=== PATIENT | male | born 1960 | race Caucasian/White ===

== ENCOUNTER 2017-06-30 09:50 | Emergency (ER) | payer MEDICARE ==
[~2017-06-30] VITALS: Ht 175.3 cm; Wt 83.9 kg
[~2017-06-30 09:50] MED LIST: PRILOSEC20 MG PO
[2017-06-30] MEDS ORDERED: COLESTIPOL HCL1 GM PO (10:00)
[2017-06-30] MEDS ORDERED: OSELTAMIVIR PHO75 MG PO (10:00)
--- NOTE | 2017-06-30 21:01 | EKG ---
[facility] [address] [facility] [place], [place] [address] Signed Normal sinus rhythm Normal ECG Confirmed by PORTIA SORIANO MD ([id number]) on 06/30/2017 9:01:48 PM Electronically Signed By: PORTIA SORIANO MD 06/30/172100 PATIENT NAME: ALEXANDRE DEVLIN Electrocardiogram DATE OF : 58 PHYSICIAN: PORTIA SORIANO MD REPORT #: [id number] REPORT IS CONFIDENTIAL AND NOT TO BE RELEASED WITHOUT AUTHORIZATION
== END 2017-06-30 11:26 | disposition home or self-care (01) ==
LOC: ED 09:50
DX: R07.2 Precordial pain (principal); D64.9 Anemia, unspecified; K21.9 Gastro-esophageal reflux disease without esophagitis; Z90.49 Acquired absence of other specified parts of digestive tract; Z96.643 Presence of artificial hip joint, bilateral; Z88.8 Allergy status to other drugs, medicaments and biological substances; Z79.899 Other long term (current) drug therapy
CPT/HCPCS: 71010; 80053; 84484; 85025; 93005; 93010; 96374; 99284; J2405